=== PATIENT | male | born 2000 | race Caucasian/White ===

== ENCOUNTER 2020-07-17 23:47 | Emergency (ER) | payer BC ==
[~2020-07-17] VITALS: Ht 180.3 cm; Wt 72.6 kg
[2020-07-18] MEDS ORDERED: KETO10TA2 PO (01:48)
== END 2020-07-18 01:54 | disposition home or self-care (01) ==
LOC: ER 23:47
DX: S43.014A Anterior dislocation of right humerus, initial encounter (principal); X50.0XXA Overexertion from strenuous movement or load, initial encounter; Y93.18 Activity, surfing, windsurfing and boogie boarding; Y92.832 Beach as the place of occurrence of the external cause; Y99.8 Other external cause status